=== PATIENT | female | born 1990 | race Caucasian/White ===

== ENCOUNTER → 2017-01-04 | Outpatient (REF) | payer BC | END | disposition home or self-care (01) | LOC: M LAB REF 12:01 | PROVIDERS: ATTEND Physician Assistant | DX: L02.216 Cutaneous abscess of umbilicus (principal) ==

== ENCOUNTER → 2017-01-08 | Outpatient (CLI) | payer BC ==
--- NOTE | 2017-01-08 10:24 | REP ---
Clinical: Abdominal pain. Periumbilical mass. Technique: Two supine views of the abdomen and pelvis. Findings: Bowel gas pattern is nonspecific. No organomegaly. No abnormal calcifications. No obvious mass/mass effect. Small 3 mm calcification in the pelvis possibly phlebolith. Skeletal structures intact. Impression: Nonspecific abdominal radiograph. Signed by Ace Quintanilla MD 01/08/2017 10:16 A
[2017-01-08 12:57] LABS: MEAN CORPUSCULAR HEMOGLOBIN 29.9 pg (27.0-33.0); MEAN CORPUSCULAR HGB CONC 33.9 g/dl (32.0-36.5); MEAN CORPUSCULAR VOLUME 88.2 fl (80.0-96.0); RED CELL DISTRIBUTION WIDTH 12.4 % (11.5-14.5); WHITE BLOOD COUNT 5.6 K/mm3 (4.0-10.0)
[2017-01-08 13:20] LABS: ERYTHROCYTE SEDIMENTATION RATE 49 mm/hr (0-20)
[2017-01-08 13:50] LABS: ALBUMIN 3.2 GM/DL (3.2-5.2); ALKALINE PHOSPHATASE 81 U/L (45-117); ALT/SGPT 18 U/L (12-78); ANION GAP 10 MEQ/L (8-16); AST/SGOT 17 U/L (15-37); BILIRUBIN,TOTAL 0.2 MG/DL (0.2-1.0); BLOOD UREA NITROGEN 14 MG/DL (7-18); CALCIUM LEVEL 8.9 MG/DL (8.5-10.1); CARBON DIOXIDE LEVEL 22 MEQ/L (21-32); CHLORIDE LEVEL 106 MEQ/L (98-107); CREATININE FOR GFR 0.95 MG/DL (0.55-1.02); GLOMERULAR FILTRATION RATE > 60.0 (>60); GLUCOSE, FASTING 87 MG/DL (70-105); POTASSIUM SERUM 4.6 MEQ/L (3.5-5.1); SODIUM LEVEL 138 MEQ/L (136-145); TOTAL PROTEIN 7.2 GM/DL (6.4-8.2)
[2017-01-08 14:24] LABS: BASOPHILS 2 % (0-4)
== END ==
LOC: M WUC 08:26
PROVIDERS: ATTEND Physician Assistant
DX: L02.216 Cutaneous abscess of umbilicus (principal)